=== PATIENT | male | born 1955 ===

== ENCOUNTER 2023-03-12 03:18 | Emergency (ER) | payer OTHER ==
--- OUTSIDE RECORDS SUMMARY | 2023-03-12 03:24 | XMS REPORT | Continuity of Care Document ---
:1955 Author Organization [facility] t Address [address] [facility] [address] [place] [address] Care Team Providers Name Role Phone MARILYN ATKINSON Primary Care Physician Unavailable Anika Grullon Attending Clinician Unavailable Derick Pierce Attending Clinician MARILYN ATKINSON Attending Clinician Unavailable Hadley Lynch Attending Clinician TOBY ARIAS Attending Clinician Unavailable DERICK SÁNCHEZ Attending Clinician Unavailable Joce Padilla Attending Clinician Anika Grullon Admitting Clinician Unavailable MARILYN ATKINSON Admitting Clinician Unavailable HADLEY GRAMAJO Admitting Clinician Unavailable Payers Payer Name Policy Type Policy Number Effective Date Expiration Date Ines hull WELLCARE/WELLCARE [id number] 2022 [employer] 00:00:00 WELLCARE HEALTH 5 [id number] 2022 MEDICARE 00:00:00 AMERIVANTAGE [id number] 2020 00:00:00 Problems Condition Condition Condition Status Onset Resolution Last Treating Co mments Source Name Details Category Date Date Treatment Clinician Date Diarrhea Diarrhea Disease Active Vanessa garcia 11-24 Health 00:00: 00 Chronic Chronic Disease Active Vincent bronchitis bronchitis 8-19 He alth 00:00: 00 Allergic Allergic Disease Active Vanessa garcia rhinitis rhinitis 11-24 Health 00:00: 00 Homelessne Homelessne Disease Active H arris ss ss 11-24 Health 00:00: 00 GERD GERD Disease Active 2013-04 Vincent (gastroeso (gastroeso 2-30 He alth phageal phageal 00:00: reflux reflux 00 disease) disease) Urge Urge Disease Active 2013-04 Vincent incontinen incontinen 2-30 He alth ce ce 00:00: 00 Obesity Obesity Disease Active 2013-04 Vincent (BMI (BMI 2-30 Health 30-39.9) 30-39.9) 00:00: 00 DIARRHEA DIARRHEA Diagnosis Active 2014-03-08 Memoria Active 09-17 10:35:00 l 09/17/2013 12:00: Nestor n 00 [facility] M17.0 - M17.0 - Diagnosis Active 2022-08-29 Memoria BILATERAL BILATERAL 06:51:00 l PRIMARY PRIMARY [place] OSTEOARTHR OSTEOARTHR IT IT Active TAYA Petersonann History of Past Illness Condition Condition Condition Status Onset Resolution Last Treating Co mments Source Name Details Category Date Date Treatment Clinician Date Discharge Discharge Problem 2013-09-21 2013-09-21 [facility] Diagnosis: Diagnosis: 09-18 01:55:59 01:55:59 l Acute Acute 05:00: Dilan gastroente gastroente 00 ritis ritis 09/18/2013 09/21/2013 [facility] Discharge Discharge Problem 2013-09-21 2013-09-21 [facility] Diagnosis: Diagnosis: 09-18 01:55:59 01:55:59 l Watery Watery 05:00: Dilan diarrhea, diarrhea, 00 hypokalemi hypokalemi a, and a, and achlorhydr achlorhydr ia ia syndrome syndrome 09/18/2013 09/21/2013 [facility] Discharge Discharge Problem 2013-09-21 2013-09-21 [facility] Diagnosis: Diagnosis: 09-18 01:55:59 01:55:59 l Acute Acute 05:00: [place] lower lower 00 urinary urinary tract tract infection infection 09/18/2013 4 [facility] Allergies, Adverse Reactions, Alerts Allergy Allergy Status Severity Reaction(s) Onset Inactive Treating Comm ents Source Name Type Date Date Clinician No Known No Known Active Memori a Medicati Medicati l on on Dilan Chris s s Family History Family Member Diagnosis Comments Start Date Stop Date Source Natural father Heart [facility] Natural mother Arthritis [facility] Social History Social Habit Start Date Stop Date Quantity Comments Source Sexual orientation [facility] Gender identity [facility] History of Social 2022-05-04 2022-05-04 [facility] function 00:00:00 00:00:00 Alcohol intake 2020-11-08 2020-11-08 Current [facility] 00:00:00 00:00:00 non-drinker of alcohol (finding) Tobacco use and 2015-11-25 2015-11-25 Smokeless tobacco [facility] exposure 00:00:00 00:00:00 non-user Tobacco Comment 2014-04-06 2014-04-06 occasional cigar [facility] 00:00:00 00:00:00 History of tobacco 2013-12-06 Cigar Smoker [facility] use 00:00:00 Alcohol Comment 2013-10-27 2013-10-27 social [facility]th 00:00:00 00:00:00 Sex [birth year] [facility] alth 00:00:00 00:00:00 Smoking Status Start Date Stop Date Source Unknown if ever smoked [facility] Ex-smoker 2015-11-25 00:00:00 2015-11-25 00:00:00 [facility] Medications Ordered Filled Start Stop Current Ordering Indication Dosage Frequency Signature Comments Components Source Medication Medication Date Date Medication? Clinician (SIG) Name Name sertraline 2020-0 Yes Mood 50mg QD Take 1 Harri s (ZOLOFT) 50 7-16 disorder tablet by Health mg tablet 00:00: mouth 00 daily. lisinopriL 2020-0 Yes Essential 5mg QD Take 1 Kaur (PRINIVIL, 7-16 hypertensio tablet by Health ZESTRIL) 5 00:00: n, benign mouth mg tablet 00 daily. amLODIPine 2020-0 Yes Essential 5mg QD Take 1 Kaur (NORVASC) 5 7-16 hypertensio tablet by Health mg tablet 00:00: n, benign mouth 00 daily. sertraline 2020-0 Yes Mood 50mg QD Take 1 Harri s (ZOLOFT) 50 7-16 disorder tablet by Health mg tablet 00:00: mouth 00 daily. lisinopriL 2020-0 Yes Essential 5mg QD Take 1 Kaur (PRINIVIL, 7-16 hypertensio tablet by Health ZESTRIL) 5 00:00: n, benign mouth mg tablet 00 daily. amLODIPine 2020-0 Yes Essential 5mg QD Take 1 Kaur (NORVASC) 5 7-16 hypertensio tablet by Health mg tablet 00:00: n, benign mouth 00 daily. sertraline 2020-0 Yes Mood 50mg QD Take 1 Harri s (ZOLOFT) 50 7-16 disorder tablet by Health mg tablet 00:00: mouth 00 daily. lisinopriL 2020-0 Yes Essential 5mg QD Take 1 Kaur (PRINIVIL, 7-16 hypertensio tablet by Health ZESTRIL) 5 00:00: n, benign mouth mg tablet 00 daily. amLODIPine 2020-0 Yes Essential 5mg QD Take 1 Kaur (NORVASC) 5 7-16 hypertensio tablet by Health mg tablet 00:00: n, benign mouth 00 daily. atorvastati 2020-0 Yes Hyperlipide 10mg Take 0.5 Kaur n (LIPITOR) 6-16 sherita, tablets by alth 20 mg 00:00: unspecified mouth at tablet 00 hyperlipide bedtime sherita type nightly. albuterol 2020-0 Yes Chronic 2{puff} Inhale 2 Kaur 90 6-16 obstructive Puffs by [facility] mcg/actuati 00:00: pulmonary mouth on inhaler 00 disease, every 4 unspecified hours as COPD type needed for Wheezing or Shortness of Breath. loratadine 2020-0 Yes Allergic 10mg QD Take 1 H arris (CLARITIN) 6-16 rhinitis, tablet by Health 10 mg 00:00: unspecified mouth tablet 00 seasonality daily. , unspecified trigger atorvastati 2020-0 Yes Hyperlipide 10mg Take 0.5 Kaur n (LIPITOR) 6-16 sherita, tablets by alth 20 mg 00:00: unspecified mouth at tablet 00 hyperlipide bedtime sherita type nightly. albuterol 2020-0 Yes Chronic 2{puff} Inhale 2 Kaur 90 6-16 obstructive Puffs by [facility] th mcg/actuati 00:00: pulmonary mouth on inhaler 00 disease, every 4 unspecified hours as COPD type needed for Wheezing or Shortness of Breath. loratadine Yes Allergic 10mg QD Take 1 H arris (CLARITIN) 6-16 rhinitis, tablet by Health 10 mg 00:00: unspecified mouth tablet 00 seasonality daily. , unspecified trigger atorvastati Yes Hyperlipide 10mg Take 0.5 Kaur n (LIPITOR) 6-16 sherita, tablets by alth 20 mg 00:00: unspecified mouth at tablet 00 hyperlipide bedtime sherita type nightly. albuterol Yes Chronic 2{puff} Inhale 2 Kaur 90 6-16 obstructive Puffs by [facility] mcg/actuati 00:00: pulmonary mouth on inhaler 00 disease, every 4 unspecified hours as COPD type needed for Wheezing or Shortness of Breath. loratadine Yes Allergic 10mg QD Take 1 H arris (CLARITIN) 6-16 rhinitis, tablet by [facility] 10 mg 00:00: unspecified mouth tablet 00 seasonality daily. , unspecified trigger miconazole 2015-04 Yes Tinea Q.5D Apply to Garcia [facility]ris (MICOTIN) 2 0-04 affected Heal th % topical 00:00: area 2 cream 00 times daily. amLODIPine 2015-04 Yes Essential 5mg QD Take 1 Kaur (NORVASC) 5 0-04 hypertensio tablet by Health mg tablet 00:00: n, benign mouth 00 daily. miconazole 2015-04 Yes Tinea Q.5D Apply to Garcia rris (MICOTIN) 2 0-04 affected Heal th % topical 00:00: area 2 cream 00 times daily. amLODIPine 2015-04 Yes Essential 5mg QD Take 1 Kaur (NORVASC) 5 0-04 hypertensio tablet by Health mg tablet 00:00: n, benign mouth 00 daily. miconazole 2015-04 Yes Tinea Q.5D Apply to [facility] (MICOTIN) 2 0-04 affected Heal th % topical 00:00: area 2 cream 00 times daily. amLODIPine 2015-04 Yes Essential 5mg QD Take 1 Kaur (NORVASC) 5 0-04 hypertensio tablet by Health mg tablet 00:00: n, benign mouth 00 daily. budesonide- Yes Chronic 2{puff} Q.5D Inhale 2 Kaur formoterol 8-19 bronchitis, Puffs by [facility] (SYMBICORT) 00:00: unspecified mouth 2 160-4.5 00 chronic times mcg/actuati bronchitis daily on inhaler type Rinse mouth after using. mometasone Yes Other 2{spray QD 2 Sprays Kaur (NASONEX) 8-19 allergic } by each [facility] 50 00:00: rhinitis nostril mcg/actuati 00 route on nasal daily. spray budesonide- Yes Chronic 2{puff} Q.5D Inhale 2 Kaur formoterol 8-19 bronchitis, Puffs by Health (SYMBICORT) 00:00: unspecified mouth 2 160-4.5 00 chronic times mcg/actuati bronchitis daily on inhaler type Rinse mouth after using. mometasone Yes Other 2{spray QD 2 Sprays Vincent (NASONEX) 8-19 allergic } by each [facility] 50 00:00: rhinitis nostril mcg/actuati 00 route on nasal daily. spray budesonide- Yes Chronic 2{puff} Q.5D Inhale 2 Kaur formoterol 8-19 bronchitis, Puffs by Health (SYMBICORT) 00:00: unspecified mouth 2 160-4.5 00 chronic times mcg/actuati bronchitis daily on inhaler type Rinse mouth after using. mometasone Yes Other 2{spray QD 2 Sprays Vincent (NASONEX) 8-19 allergic } by each [facility] 50 00:00: rhinitis nostril mcg/actuati 00 route on nasal daily. spray Ondansetron Yes Special Mem oria 4 MG 6-13 Instructio l Disintegrat 06:27: ns: Nestor griffin ing Tablet 00 Dissolve tab under tongue Ciprofloxac Yes 500 mg = 1 Memoria in 500 MG 6-13 tab, PO, l Oral Tablet 06:27: BID, # 10 H ermann [Cipro] 00 tab, 0 Refill(s) Ciprofloxac Yes 500 mg = 1 Memoria in 500 MG 6-13 tab, PO, l Oral Tablet 06:27: BID, # 10 H ermann [Cipro] 00 tab, 0 Refill(s) Ondansetron Yes Special Mem oria 4 MG 6-13 Instructio l Disintegrat 06:27: ns: Nestor n ing Tablet 00 Dissolve tab under tongue Ciprofloxac Yes 500 mg = 1 Memoria in 500 MG 09-18 tab, PO, l Oral Tablet 06:27: BID, # 10 H ermann [Cipro] 00 tab, 0 Refill(s) Ondansetron Yes Special Mem oria 4 MG 09-18 Instructio l Disintegrat 06:27: ns: Nestor griffin ing Tablet 00 Dissolve tab under tongue potassium No 20 mEq, Memor ia chloride 20 09-18 Route: l mEq/100 mL 04:39: IVPB, Nestor n intravenous 00 ONCE, solution Dosing Weight 100, kg, Priority: STAT, Start date: 09/17/13 23:39:00, Stop date: 09/17/13 23:39:00 potassium 2013-0 No 20 mEq, Memor ia chloride 20 09-18 Route: l mEq/100 mL 04:39: IVPB, Nestor n intravenous 00 ONCE, solution Dosing Weight 100, kg, Priority: STAT, Start date: 09/17/13 23:39:00, Stop date: 09/17/13 23:39:00 potassium 2013-0 No 20 mEq, Memor ia chloride 20 09-18 Route: l mEq/100 mL 04:39: IVPB, Nestor n intravenous 00 ONCE, solution Dosing Weight 100, kg, Priority: STAT, Start date: 09/17/13 23:39:00, Stop date: 09/17/13 23:39:00 Potassium 2013-0 No 40 mEq, Memor ia Chloride 20 09-18 Route: PO, l MEQ 04:38: Drug form: [place] Extended 00 ERTAB, Release ONCE, Tablet Dosing Weight 100, kg, Priority: STAT, Start date: 09/17/13 23:38:00, Stop date: 09/17/13 23:38:00 Potassium 2013-0 No 40 mEq, Memor ia Chloride 20 613 Route: PO, l MEQ 04:38: Drug form: Dilan Extended 00 ERTAB, Release ONCE, Tablet Dosing Weight 100, kg, Priority: STAT, Start date: 09/17/13 23:38:00, Stop date: 09/17/13 23:38:00 Potassium 2013-0 No 40 mEq, Memor ia Chloride 20 613 Route: PO, l MEQ 04:38: Drug form: [place] Extended 00 ERTAB, Release ONCE, Tablet Dosing Weight 100, kg, Priority: STAT, Start date: 09/17/13 23:38:00, Stop date: 09/17/13 23:38:00 Saline No Notes: Memoria Flush 0.9% 6-13 (Same as: l 04:04: BD Dilan 00 Posiflush) Sodium No 1,000 mL, Memori a Chloride 6-13 1000 l 0.154 04:04: ml/hr, Dilan MEQ/ML 00 Infuse Injectable Over: 1 Solution hr, Route: IV, 1,000, Drug form: INJ, ONCE, Priority: STAT, Dosing Weight 100 kg, Start date: 09/17/13 23:04:00, Duration: 1 doses or times, Stop date: 09/17/13 23:04:00 Ondansetron No Notes: Jitendra abigail 6-13 (Same as: l 04:04: Zofran) [place] Saline No Notes: Memoria Flush 0.9% 6-13 (Same as: l 04:04: BD [place] 00 Posiflush) Sodium No 1,000 mL, Memori a Chloride 6-13 1000 l 0.154 04:04: ml/hr, [place] MEQ/ML 00 Infuse Injectable Over: 1 Solution hr, Route: IV, 1,000, Drug form: INJ, ONCE, Priority: STAT, Dosing Weight 100 kg, Start date: 09/17/13 23:04:00, Duration: 1 doses or times, Stop date: 09/17/13 23:04:00 Ondansetron No Notes: Jitendra abigail 6-13 (Same as: l 04:04: Zofran) Dilan Ondansetron No Notes: Jitendra abigail 6-13 (Same as: l 04:04: Zofran) [place] Saline No Notes: Memoria Flush 0.9% 6-13 (Same as: l 04:04: BD Dilan 00 Posiflush) Sodium No 1,000 mL, Memori a Chloride 6-13 1000 l 0.154 04:04: ml/hr, Dilan MEQ/ML 00 Infuse Injectable Over: 1 Solution hr, Route: IV, 1,000, Drug form: INJ, ONCE, Priority: STAT, Dosing Weight 100 kg, Start date: 09/17/13 23:04:00, Duration: 1 doses or times, Stop date: 09/17/13 23:04:00 Immunizations Ordered Immunization Filled Immunization Date Status Commen ts Source Name Name Influenza Vaccine 2016-01-10 Completed [facility] 00:00:00 Influenza Vaccine 2014-04-06 Completed [facility] 00:00:00 Tdap Tetanus, 2014-04-06 [facility]:00 acellular pertussis Vaccine PPV 23 Pneumococcal 2014-04-06 Completed [facility] 00:00:00 Influenza Vaccine Unknown Completed [facility] Tdap Tetanus, Unknown [facility], acellular pertussis Vaccine PPV 23 Pneumococcal Unknown Completed [facility] Influenza Vaccine Unknown Completed [facility] Influenza Vaccine Unknown Completed [facility] Tdap Tetanus, Unknown Com[facility], acellular pertussis Vaccine PPV 23 Pneumococcal Unknown Completed [facility] Influenza Vaccine Unknown Completed [facility] Vital Signs Vital Name Observation Time Observation Value Comments Source Diastolic (mm Hg) 2013-09-18 06:49:00 Mem orial [place] Systolic (mm Hg) 2013-09-18 06:49:00 Jitendra rial [place]an Respitory Rate 2013-09-18 06:49:00 Memori al [place] Heart Rate 2013-09-18 05:00:00 Memorial [place] Respitory Rate 2013-09-18 05:00:00 Memori al [place] Systolic (mm Hg) 2013-09-18 05:00:00 Jitendra rial [place] Diastolic (mm Hg) 2013-09-18 05:00:00 Mem orial [place] Weight 2013-09-18 03:24:00 Memorial [facility]an BMI Calculated 2013-09-18 03:24:00 Memori al [place] Temperature Oral (F) 2013-09-18 03:24:00 98.6 F [facility] [place] Respitory Rate 2013-09-18 03:24:00 Memori al [place] Heart Rate 2013-09-18 03:24:00 Memorial Dilan Diastolic (mm Hg) 2013-09-18 03:24:00 Mem orial [place] Systolic (mm Hg) 2013-09-18 03:24:00 Jitendra rial [place] Height 2013-09-18 03:24:00 182.88 cm [facility] Procedures Procedure Date / Time Performed Performing Clinician Sourc e Infectious agent 2019-10-14 00:00:00 [facility] detection by nucleic acid (DNA or Appendectomy [facility] Plan of Care Planned Activity Planned Date Details Comments Source Future Scheduled Test 2023-01-06 IMM Influenza Seasonal [facility] 00:00:00 (>/= 19 yrs) [code = IMM Influenza Seasonal (>/= 19 yrs)] Future Scheduled Test 2022-12-07 IMM Influenza Seasonal [facility] 00:00:00 (>/= 19 yrs) [code = IMM Influenza Seasonal (>/= 19 yrs)] Future Scheduled Test 2022-12-07 IMM Influenza Seasonal [facility] 00:00:00 (>/= 19 yrs) [code = IMM Influenza Seasonal (>/= 19 yrs)] Future Scheduled Test 2019-07-25 Imm Pneumococcal 65+ (2 [facility] 00:00:00 - PCV) [code = Imm Pneumococcal 65+ (2 - PCV)] Future Scheduled Test 2019-07-25 Imm Pneumococcal 65+ ([address] [place] [address] 00:00:00 - PCV) [code = Imm Pneumococcal 65+ (2 - PCV)] Future Scheduled Test 2015-04-06 Imm Pneumococcal 65+ (2 [facility] 00:00:00 - PCV) [code = Imm Pneumococcal 65+ (2 - PCV)] Future Scheduled Test 2014-10-27 Screening for malignant [facility] 00:00:00 neoplasm of colon (procedure) [code = 460809580] Future Scheduled Test 2014-10-27 Screening for malignant [facility] 00:00:00 neoplasm of colon (procedure) [code = 067293028] Future Scheduled Test 2014-10-27 Screening for malignant [facility] 00:00:00 neoplasm of colon (procedure) [code = 117333226] Future Scheduled Test 1956-01-23 COVID-19 Vaccine (#1) [facility] 00:00:00 [code = COVID-19 Vaccine (#1)] Future Scheduled Test 1956-01-23 COVID-19 Vaccine (#1) [facility] 00:00:00 [code = COVID-19 Vaccine (#1)] Future Scheduled Test 1956-01-23 COVID-19 Vaccine (#1) [facility] 00:00:00 [code = COVID-19 Vaccine (#1)] Encounters Start End Encounter Admission Attending Care Care Encounter Source Date/Time Date/Time Type Type Clinicians Facility Department ID 2022-08-[address] [facility] [id number] [place] 08:54:02 [id number] [facility] 2023-01-16 2023-01-16 Outpatient OZ Adler RADI [id number] [facility] 15:37:00 15:37:00 Anika Avalos [facility] [place] 2022-08-09 2022-08-10 Outpt Diag [facility] [id number] Memoria 13:55:00 04:59:00 Services Outpatient 00 l Imaging [place] 2022-08-09 2022-08-10 [facility] [id number] [facility] 13:55:00 04:59:00 Services Outpatient 00 l Imaging Dilan Petersonann 2022-08-09 2022-08-09 Outpatient Stan [facility] [id number] 08:55:00 23:59:00 Derick Long 2022-06-25 2022-06-25 Outpatient ZIA [id number] 00:00:00 00:00:00 Birgit Tripathi 2022-06-04 2022-06-04 Office Andres Gramajo [id number] 08:30:00 09:47:07 Visit Hadley Terrazas [facility].[id number] Central .[id number] 2022-06-04 2022-06-04 Outpatient Jerome GRAMAJO60EPIC [id number] 06:34:12 07:47:07 HADLEY Genao 2021-08-30 2021-08-30 Outpatient JUANA [facility] [id number] [facility] 00:00:00 00:00:00 TOBY 2019-10-14 2019-10-14 Outpatient [facility] [id number] [facility] 10:00:00 10:00:00 [id number] [facility] [id number] 2019-10-14 2019-10-14 Outpatient GONZALO LENCHO [facility] [id number] Access[facility] 00:00:00 00:00:00 DERICK pittreza 2019-10-14 2019-10-14 Outpatient GONZALO [facility] [id number] [facility] 00:00:00 00:00:00 DERICK Garcia [id number] [facility] [id number] 2017-10-07 2017-10-07 Outpatient [facility] [id number] [facility] 12:03:54 12:03:54 2017-10-07 2017-10-07 Outpatient [facility] [id number] [facility] 00:00:00 00:00:00 2017-10-01 2017-10-01 Outpatient [facility] HH [id number] [facility] 15:51:53 15:51:53 2017-09-17 2017-09-17 Outpatient [facility] [id number] [facility] 12:24:15 12:24:15 2017-08-27 2017-08-27 Outpatient HHH [facility] [id number] [facility] 11:00:13 11:00:13 2017-08-08 2017-08-08 Outpatient [facility] [id number] [facility] 09:53:58 09:53:58 2017-07-23 2017-07-23 Outpatient [facility] [id number] [place] 00:00:00 00:00:00 Health 2017-07-22 2017-07-22 Outpatient [facility] [id number] [facility] 15:37:05 15:37:05 2017-07-22 2017-07-22 Outpatient [facility] [id number] [facility] 15:28:03 15:28:03 2017-07-16 2017-07-16 Outpatient [facility] [id number] [facility] 14:16:45 14:16:45 2017-07-15 2017-07-15 Outpatient [facility] HH [id number] [facility] 16:19:25 16:19:25 2017-07-01 2017-07-01 Outpatient [facility] [id number] [facility] 15:50:28 15:50:28 2017-06-24 2017-06-24 Outpatient C [facility] [id number] 16:40:00 16:40:00 [facility] 2016-12-26 2016-12-26 Outpatient C [facility] [id number] 11:18:00 11:18:00 [facility] 2016-05-18 2016-05-18 Emergency E [facility] [id number] 10:51:00 10:51:00 [facility] 2013-09-18 2013-09-18 [facility] [id number] [facility] 03:22:00 06:51:00 Emergency r [place] 00 l [facility] 2013-09-18 2013-09-18 [facility] [id number] [facility] 03:22:00 06:51:00 Emergency r Dilan 00 l [facility] 2013-09-17 2013-09-18 Outpatient Valerie, Joce [id number] 22:22:00 01:51:00 Amrit [id number] 01 Results Test Description Test Time Test Comments Results Result Comments Source - XR CHEST 2 V 2023-01-16 [facility]:27:00 [facility] 1955 Sex: M Name: ROSY GARCIA [facility] : 1955 Age/S: 67 / M [id number] [address] [place] Unit #: [id number] Loc: [place] [address] Phys: Anika Grullon MD Acct: [id number] Dis Date: Status: REG CLI PHONE #: [phone] Exam Date: 01/16/20231557 FAX #: Reason: MUCOPURULENT CHRONIC BRONCHITIS EXAMS: CPT: [id number] XR CHEST 2 V 11563 Fluoro Time: DAP (Gy m2): Air Kerma (mGy): REASON FOR EXAM: Chronic bronchitis. COMPARISON: None. Chest, 2 views, frontal and lateral projection. The lungs are well-inflated and clear. Heart size is mildly enlarged with vascular congestive pattern changes.. No effusion or pneumothorax can be seen. Osseous structures appear to be intact. IMPRESSION: No acute consolidation. Mild cardiac enlargement with vascular congestion may need correlation with fluid status or mild heart failure. No effusion. Location: [facility] at 1627 Reported and signed by: Joce Roberts M.D. CC: Anika Grullon MD PAGE 1 Signed Report Name: [facility] [place] : 1955 Age/S: 67 / M [id number] [address] [place] Unit #: [id number] Loc: [place] [address] Phys: Anika Grullon MD Acct: [id number] Dis Date: Status: REG CLI PHONE #: [phone] Exam Date: 01/16/20231557 FAX #: Reason: MUCOPURULENT CHRONIC BRONCHITIS EXAMS: CPT: [id number] XR CHEST 2 V 45051 Fluoro Time: DAP (Gy m2): Air Kerma (mGy): (Continued) Technologist: Lily Tran Trnscb Date/Time: 01/16/2023 (1627) [email or web address] Orig Print D/T: S: 01/16/2023 (9465) PAGE 2 Signed Report RADRPT 2022-08-09 16:11:08 Test Item Value Reference Range Interpretation Comme nts RADRPT (test code = RADRPT) EXAM: XR LUMBAR SPINE 4 VIEWSDATE: 08/09/2022INDICATION: Other intervertebral disc degeneration, lumbar regionCOMPARISON: None.TECHNIQUE: AP, lateral, and lateral flexion-extension radiographs of the lumbar spine.FINDINGS: 5 lumbar type, non-rib bearing vertebral bodies are present. Mild vertebral body height loss of L5. Mild disc height loss and small vertebral body osteophytes throughout the lumbar spine. Mild dextrocurvature of the lumbar spine. Moderate lower lumbar facet arthropathy is present, along with small vertebral body osteophytes. No subluxation on flexion-extension.Surgical clips overlie the gallbladder fossa. Soft tissues are otherwise unremarkable.IMPRESSION: 1. Mild degenerative disc disease throughout the lumbar spine.2. Moderate lower lumbar facet arthrosis. [id number] 16:11:08 Test Item Value Reference Range Interpretation Comments RADRPT (test code EXAM: XR LUMBAR SPINE 4 = RADRPT) VIEWSDATE: 08/09/2022INDICATION: Other intervertebral disc degeneration, lumbar regionCOMPARISON: None.TECHNIQUE: AP, lateral, and lateral flexion-extension radiographs of the lumbar spine.FINDINGS: 5 lumbar type, non-rib bearing vertebral bodies are present. Mild vertebral body height loss of L5. Mild disc height loss and small vertebral body osteophytes throughout the lumbar spine. Mild dextrocurvature of the lumbar spine. Moderate lower lumbar facet arthropathy is present, along with small vertebral body osteophytes. No subluxation on flexion-extension.Surgical clips overlie the gallbladder fossa. Soft tissues are otherwise unremarkable.IMPRESSION: 1. Mild degenerative disc disease throughout the lumbar spine.2. Moderate lower lumbar facet arthrosis. [id number] 16:11:08 Test Item Value Reference Range Interpretation Comments RADRPT (test code EXAM: XR LUMBAR SPINE 4 = RADRPT) VIEWSDATE: 08/09/2022INDICATION: Other intervertebral disc degeneration, lumbar regionCOMPARISON: None.TECHNIQUE: AP, lateral, and lateral flexion-extension radiographs of the lumbar spine.FINDINGS: 5 lumbar type, non-rib bearing vertebral bodies are present. Mild vertebral body height loss of L5. Mild disc height loss and small vertebral body osteophytes throughout the lumbar spine. Mild dextrocurvature of the lumbar spine. Moderate lower lumbar facet arthropathy is present, along with small vertebral body osteophytes. No subluxation on flexion-extension.Surgical clips overlie the gallbladder fossa. Soft tissues are otherwise unremarkable.IMPRESSION: 1. Mild degenerative disc disease throughout the lumbar spine.2. Moderate lower lumbar facet arthrosis. [id number] 16:08:20 Test Item Value Reference Range Interpretation Comments RADRPT (test code EXAM: XR BILATERAL KNEE 3 = RADRPT) VIEWSDATE: 08/09/2022INDICATION: Bilateral primary osteoarthritis of kneeCOMPARISON: None.TECHNIQUE: Standing AP, sunrise and lateral radiographs of both kneesFINDINGS: Right knee: No acute fracture or malalignment is identified. Tricompartmental osteophyte formation. Joint space narrowing in the lateral and patellofemoral compartments.No knee joint effusion is present. Vascular calcifications are present.Left knee: No acute fracture or malalignment is identified. Tricompartmental osteophyte formation. Joint space narrowing in the lateral and patellofemoral compartments.No knee joint effusion is present. Vascular calcifications are present.IMPRESSION: Moderate to severe bilateral knee osteoarthrosis, greatest in the lateral compartments. [id number] 16:08:20 Test Item Value Reference Range Interpretation Comments RADRPT (test code EXAM: XR BILATERAL KNEE 3 = RADRPT) VIEWSDATE: 08/09/2022INDICATION: Bilateral primary osteoarthritis of kneeCOMPARISON: None.TECHNIQUE: Standing AP, sunrise and lateral radiographs of both kneesFINDINGS: Right knee: No acute fracture or malalignment is identified. Tricompartmental osteophyte formation. Joint space narrowing in the lateral and patellofemoral compartments.No knee joint effusion is present. Vascular calcifications are present.Left knee: No acute fracture or malalignment is identified. Tricompartmental osteophyte formation. Joint space narrowing in the lateral and patellofemoral compartments.No knee joint effusion is present. Vascular calcifications are present.IMPRESSION: Moderate to severe bilateral knee osteoarthrosis, greatest in the lateral compartments. [id number] 16:08:20 Test Item Value Reference Range Interpretation Comments RADRPT (test code EXAM: XR BILATERAL KNEE 3 = RADRPT) VIEWSDATE: 08/09/2022INDICATION: Bilateral primary osteoarthritis of kneeCOMPARISON: None.TECHNIQUE: Standing AP, sunrise and lateral radiographs of both kneesFINDINGS: Right knee: No acute fracture or malalignment is identified. Tricompartmental osteophyte formation. Joint space narrowing in the lateral and patellofemoral compartments.No knee joint effusion is present. Vascular calcifications are present.Left knee: No acute fracture or malalignment is identified. Tricompartmental osteophyte formation. Joint space narrowing in the lateral and patellofemoral compartments.No knee joint effusion is present. Vascular calcifications are present.IMPRESSION: Moderate to severe bilateral knee osteoarthrosis, greatest in the lateral compartments. [facility] Metabolic Panel ([id number] 17:09:00 Test Item Value Reference Range Interpretation Comments Glucose (test code = 98 mg/dL 70-99 [employer]: [id number]) Meek aTlley Eskue, MDFacility Phon e: BUN (test code = 11 mg/dL 8-27 Pediatric Immunologist razia: [id number]) Meek Talley Eskue, MDFacility Phon e: Creatinine (test code 1.27 mg/dL 0.76-1.27 [facility] = [id number]) Meek Talley Eskue, MDFacility Phon e: eGFR (test code = 62 mL/min/1.73 >59 [employer]: [id number]) Meek Talley Eskue, MDFacility Phon e: BUN/Creatinine Ratio 9 10-24 [employer]: (test code = 176936) Meek Talley Eskue, MDFacility Phon e: Sodium (test code = 138 mmol/L 134-144 [employer]: [id number]) Meek Talley Eskue, MDFacility Phon e: Potassium (test code 4.1 mmol/L 3.5-5.2 [employer]: = 200486) Meek Talley Eskue, MDFacility Phon e: Chloride (test code = 108 mmol/L 96-106 Medica l Director: [id number]) Meek Talley Eskue, MDFacility Phon e: Carbon Dioxide, Total 18 mmol/L 20-29 Medica l Director: (test code = 120928) Meek Talley Eskue, MDFacility Phon e: Calcium (test code = 8.9 mg/dL 8.6-10.2 [employer]itter: [id number]) Meek Lopez MDFacility Phon e: Protein, Total (test 7.1 g/dL 6.0-8.5 [employer]itter: code = 333828) Meek Lopze, MDFacility Phon e: Albumin (test code = 4.3 g/dL 3.8-4.8 [employer]: [id number]) Meek Lopez, MDFacility Phon e: Globulin, Total (test 2.8 g/dL 1.5-4.5 [facility] code = 063876) Meek Lopez, MDFacility Phon e: A/G Ratio (test code 1.5 1.2-2.2 [employer]itter: = 436258) Meek Lopez, MDFacility Phon e: Bilirubin, Total 0.8 mg/dL 0.0-1.2 Pediatric Immunologist razia: (test code = 862539) Meek Lopez, MDFacility Phon e: Alkaline Phosphatase 64 IU/L 44-121 [employer]der And [employer]itter: (test code = 019354) Meek Lopez, MDFacility Phon e: AST (SGOT) (test code 15 IU/L 0-40 [facility] = [id number]) Meek Lopez, MDFacility Phon e: ALT (SGPT) (test code 7 IU/L 0-44 [facility] = [id number]) Meek Lopez, MDFacility Phon e: Patient FastingLipid [id number] 17:09:00 Test Item Value Reference Range Interpretation Comments Cholesterol, Total (test 189 mg/dL 100-199 Med [facility] Director: code = 225446) Meek Lopez, MDFacility Phon e: Triglycerides (test code 68 mg/dL 0-149 Med ical Director: = [id number]) Jes Jackson Phon e: HDL Cholesterol (test 40 mg/dL >39 Medica l Director: code = 945824) Liseth Jacksoncility Phon e: VLDL Cholesterol Rod 13 mg/dL 5-40 [employer]itter: (test code = 377211) Liseth Jacksoncilannalise Phon e: LDL Chol Calc ([facility]) 136 mg/dL 0-99 Welder And Fitter: (test code = 059392) Yvette Jacksonity Phon e: Patient FastingHemoglobin [id number] 17:09:00 Test Item Value Reference Range Interpretation Comments Hemoglobin A1c (test 5.7 % 4.8-5.6 . Pred iabetes: 5.7 - code = 418218) 6.4 Diabetes: >6.4 Glycemic contro l for adults with joselyn betes: <7.0Medical Dir razia: Obed Jackson [facility] Phone: Patient FastingRPR, Rfx Qn RPR/Confirm [id number] 17:09:00 Test Item Value Reference Range Interpretation Comments RPR (test code = Non Reactive Non Reactive Pediatric Immunologist razia: Meek [id number]) Isael Olvera lity Phone: Patient FastingHIV Ab/p24 Ag with [id number] 17:09:00 Test Item Value Reference Range Interpretation Comments HIV Ab/p24 Ag See comment Non Reactive HIV-1/HIV-2 an tibodies Screen (test code = and HIV- 1 p24 antigen [id number]) were NOT detect ed.There is no laborator y evidence of HIV infection.Medic al Director: Jes Jackson Phon e: Patient FastingHCV [id number] 17:09:00 Test Item Value Reference Range Interpretation Comments Hep C Virus Ab See comment Non Reactive HCV antibody alone does not (test code = differentiate b etween 577423) previouslyresol camron infection and a ctive infection. Equi vocal and ReactiveHCV ant ibody results should be followed up with an HCV RNA testto support the joselyn gnosis of active HCV infection.Medic al Director: [facility] Phone: Patient FastingPanel Description: SARS-CoV-2 (COVID-19) RNA [Presence] in Unspecified specimen by DONOVAN with probe [id number] 09:18:00 Test Item Value Reference Range Interpretation Comments SARS-CoV-2, Not Detected Not Detected Testing was per formed using DONOVAN (test code the Aptima SA RS-CoV-2 = 14419-9) assay.This test was developed and i ts performance silvino racteristics determinedby [employer]. T his test has not been FDA cl eared orapproved. Thi s test has been authorized by FDA under an Emerge ncy UseAuthorizatio n (EUA). This test is on ly authorized for the duration oftime the decl aration that circumstances e xist justifying akiko uthorization of the emergenc y use of in vitro diagnosti c tests fordetection of SARS-CoV-2 virus and/or di agnosis of COVID-19 infect ionunder section 564(b)( 1) of the Act, 21 U.S.C. 360bbb-3(b)(1), unlessthe authorization i s terminated or revoked soon er.When diagnostic test ing is negative, the p ossibility of a falsenegat rachell result should be consi dered in the context of a patient'srecent exposures and the presenc e of clinical signs and symptomsconsist ent with COVID-19. An in dividual without symptom s of COVID-19and who is not shedding SARS-C oV-2 virus would expect to have anegative (not detected) result in this assay.
< br/>Performe d by:
[facility] will Bey ()

[facility] Spine Thoracic 2 [id number] 11:19:37Patient: ROSY GARCIA Date/Time09/23/2017 11:04 CDTReason for ExampainReportEXAM: XR THORACIC SPINE 2 VIEWSINDICATION: PAINCOMPARISON: None availableTECHNIQUE: AP and lateral radiographs of the thoracic spineDISCUSSION:The vertebral bodies are normal in height, alignment and density. The facet joints and spinous processes are normal alignment. The intervertebral disc spaces are normal. No osseous lesions are identified. No soft tissue abnormality is identified.IMPRESSION:No acute abnormality of the thoracic spine.LOCATION: R 16 Final Dictated by: MD Sarabia Melanie CDictated DT/TM: 09/23/2017 11:19 amSigned by: MD Sarabia Melanie CSigned (Electronic Signature): 09/23/2017 11:19 amXR Spine Lumbosacral 2 or 3 [id number] 11:19:14Patient: ROSY GARCIA Date/Time09/23/2017 11:04 CDTReason for ExampainReportEXAM: XR LUMBAR SPINE 2 VIEWSINDICATION: PAINCOMPARISON: None availableTECHNIQUE: AP and lateral radiographs of the lumbar spineFINDINGS:5 lumbar type, non-rib bearing lumbar vertebral bodies. The vertebral bodies are normal in height, alignment and density. The facet joints and spinous processes are normal in alignment. There is diffuse facet joint arthropathy. There is loss of the intervertebral discheight throughout the lumbar spine. Sacroiliac joints are normal. No soft tissue abnormality is identified.IMPRESSION:Diffuse discogenic disease and facet joint arthropathy.LOCATION: R16 Final *Dictated by: MD Sarabia Melanie CDictated DT/TM: 09/23/2017 11:18 amSigned by: MD Sarabia Melanie CSigned (Electronic Signature): 09/23/2017 11:19 amXR SPINE CERVICAL [id number] 17:43:55CLINICAL INFORMATION: Spine pain neck and mid back.Dictation location: R 16Comparison: No priors.Technique: Frontal and lateral views of the dorsal and cervical spine.FINDINGS: There is straightening of the usual cervical lordosis. Thereis mild chronic anterior wedging of C4 and C5. C5-6 and C6-7 interspacesshow moderate narrowing with marginal osteophytes. There is preservationof the thoracic vertebral body heights with mild levo convexity. Noacute fracture or destructive bone lesion identified.IMPRESSION:1. Cervical dorsal spondylosis.2. No acute finding identified.XR SPINE THORACIC 3V 2017-06-24 17:43:55CLINICAL INFORMATION: Spine pain neck and mid back.Dictation location: R 16Comparison: No priors.Technique: Frontal and lateral views of the dorsal and cervical spine.FINDINGS: There is straightening of the usual cervical lordosis. Thereis mild chronic anterior wedging of C4 and C5. C5-6 and C6-7 interspacesshow moderate narrowing with marginal osteophytes. There is preservationof the thoracic vertebral body heights with mild levo convexity. Noacute fracture or destructive bone lesion identified.IMPRESSION:1. Cervical dorsal spondylosis.2. No acute finding identified.XR KNEE 2V.-[id number] 12:17:27EXAM: XR KNEE 2 VIEWS, LEFTINDICATION: Pain COMPARISON: None availableTECHNIQUE: AP and lateral views of the left knee.FINDINGS: No acute fracture or dislocation is identified. No osseous lesions.Thereis joint space narrowing with subchondral sclerosis andtricompartmental osteophytosis. No joint effusion. No soft tissueabnormality is identified.IMPRESSION: Mild DJD of the left knee.LOCATION: R16XR KNEE 2V.-[id number] 12:12:26EXAM: XR KNEE 2 VIEWS, RIGHTINDICATION: PainCOMPARISON: None availableTECHNIQUE: AP and lateral views of the right knee.FINDINGS: No acute fracture or dislocation is identified. No osseous lesions.There is joint space narrowing with subchondral sclerosis and smalltricompartmental osteophytes. No jointeffusion. No soft tissueabnormality is identified.IMPRESSION: Mild DJD of the right kneeLOCATION: E36WZNHI AND [id number] 04:26:12 Test Item Value Reference Range Interpretation Comments UA Sq Epi (test code = UA Sq Occasional /LPF Epi) [facility] [id number] 04:26:12 Test Item Value Reference Range Interpretation Comments UA Urobilinogen (test code = UA 4.0 0.1-1.0 Urobilinogen) [facility] AND [id number] 04:26:12 Test Item Value Reference Range Interpretation Comments UA Leuk Est (test Negative (09/17/13 11:26 code = UA Leuk Est) PM) [facility] AND [id number] 04:26:12 Test Item Value Reference Range Interpretation Comments UA Nitrite (test code Positive *ABN*(09/17/13 = UA Nitrite) 11:26 PM) [facility] AND [id number] 04:26:12 Test Item Value Reference Range Interpretation Comments UA Amorph Geovanna (test code = Occasional /HPF UA Amorph Geovanna) [facility] AND [id number] 04:26:12 Test Item Value Reference Range Interpretation Comments UA RBC (test code = UA RBC) 0-2 /HPF <=2 [facility] AND [id number] 04:26:12 Test Item Value Reference Range Interpretation Comments UA WBC (test code = UA WBC) 3-5 /HPF [facility] AND [id number] 04:26:12 Test Item Value Reference Range Interpretation Comments UA Mucus (test code = UA Mucus) Few /LPF [facility] AND [id number] 04:26:12 Test Item Value Reference Range Interpretation Comments UA Bacteria (test code = UA Few /HPF Bacteria) [facility] AND [id number] 04:26:12 Test Item Value Reference Range Interpretation Comments UA Bili (test code = Moderate 4*ABN*(09/17/13 UA Bili) 11:26 PM) [facility] AND [id number] 04:26:12 Test Item Value Reference Range Interpretation Comments UA Blood (test code = Moderate *ABN*(09/17/13 UA Blood) 11:26 PM) [facility] AND [id number] 04:26:12 Test Item Value Reference Range Interpretation Comments UA Spec Grav (test >=1.030 *ABN*(09/17/13 code = UA Spec Grav) 11:26 PM) [facility] AND [id number] 04:26:12 Test Item Value Reference Range Interpretation Comments UA pH (test code = UA pH) 6.0 1 5.0-8.0 [facility] AND [id number] 04:26:12 Test Item Value Reference Range Interpretation Comments UA Glucose (test code = UA Glucose) 100 mg/dL [facility] AND [id number] 04:26:12 Test Item Value Reference Range Interpretation Comments UA Ketones (test code = Trace *ABN*(09/17/13 UA Ketones) 11:26 PM) [facility] AND [id number] 04:26:12 Test Item Value Reference Range Interpretation Comments UA Protein (test code = UA >=300 mg/dL Protein) [facility] AND [id number] 04:26:12 Test Item Value Reference Range Interpretation Comments UA Color (test code = Delton *ABN*(09/17/13 UA Color) 11:26 PM) [facility] AND [id number] 04:26:12 Test Item Value Reference Range Interpretation Comments UA Turbidity (test code Slight Cloudy = UA Turbidity) (09/17/13 11:26 PM) [facility] AND [id number] 04:26:12 Test Item Value Reference Range Interpretation Comments UA Sq Epi (test code = UA Sq Occasional /LPF Epi) [facility] AND [id number] 04:26:12 Test Item Value Reference Range Interpretation Comments UA Urobilinogen (test code = UA 4.0 0.1-1.0 Urobilinogen) [facility] AND [id number] 04:26:12 Test Item Value Reference Range Interpretation Comments UA Leuk Est (test Negative (09/17/13 11:26 code = UA Leuk Est) PM) [facility] AND [id number] 04:26:12 Test Item Value Reference Range Interpretation Comments UA Nitrite (test code Positive *ABN*(09/17/13 = UA Nitrite) 11:26 PM) [facility] AND [id number] 04:26:12 Test Item Value Reference Range Interpretation Comments UA Amorph Geovanna (test code = Occasional /HPF UA Amorph Geovanna) [facility] AND [id number] 04:26:12 Test Item Value Reference Range Interpretation Comments UA RBC (test code = 0-2 /HPF See_Comment [Automa ayala message] The UA RBC) system which ge nerated this result tra nsmitted reference range : <=2. The reference range was not used to interpr et this result as elizabeth l/abnormal. [facility] AND [id number] 04:26:12 Test Item Value Reference Range Interpretation Comments UA WBC (test code = UA WBC) 3-5 /HPF [facility] AND [id number] 04:26:12 Test Item Value Reference Range Interpretation Comments UA Mucus (test code = UA Mucus) Few /LPF [facility] AND [id number] 04:26:12 Test Item Value Reference Range Interpretation Comments UA Bacteria (test code = UA Few /HPF Bacteria) [facility] AND [id number] 04:26:12 Test Item Value Reference Range Interpretation Comments UA Bili (test code = Moderate 4*ABN*(09/17/13 UA Bili) 11:26 PM) [facility] AND [id number] 04:26:12 Test Item Value Reference Range Interpretation Comments UA Blood (test code = Moderate *ABN*(09/17/13 UA Blood) 11:26 PM) [facility] AND [id number] 04:26:12 Test Item Value Reference Range Interpretation Comments UA Spec Grav (test >=1.030 *ABN*(09/17/13 code = UA Spec Grav) 11:26 PM) [facility] AND [id number] 04:26:12 Test Item Value Reference Range Interpretation Comments UA pH (test code = UA pH) 6.0 1 5.0-8.0 [facility] AND [id number] 04:26:12 Test Item Value Reference Range Interpretation Comments UA Glucose (test code = UA Glucose) 100 mg/dL [facility] AND [id number] 04:26:12 Test Item Value Reference Range Interpretation Comments UA Ketones (test code = Trace *ABN*(09/17/13 UA Ketones) 11:26 PM) [facility] AND [id number] 04:26:12 Test Item Value Reference Range Interpretation Comments UA Protein (test code = UA >=300 mg/dL Protein) [facility] AND [id number] 04:26:12 Test Item Value Reference Range Interpretation Comments UA Color (test code = Delton *ABN*(09/17/13 UA Color) 11:26 PM) [facility] AND [id number] 04:26:12 Test Item Value Reference Range Interpretation Comments UA Turbidity (test code Slight Cloudy = UA Turbidity) (09/17/13 11:26 PM) [facility] AND [id number] 04:26:12 Test Item Value Reference Range Interpretation Comments UA Sq Epi (test code = UA Sq Occasional /LPF Epi) [facility] AND [id number] 04:26:12 Test Item Value Reference Range Interpretation Comments UA Urobilinogen (test code = UA 4.0 0.1-1.0 Urobilinogen) [facility] AND [id number] 04:26:12 Test Item Value Reference Range Interpretation Comments UA Leuk Est (test Negative (09/17/13 11:26 code = UA Leuk Est) PM) [facility] AND [id number] 04:26:12 Test Item Value Reference Range Interpretation Comments UA Nitrite (test code Positive *ABN*(09/17/13 = UA Nitrite) 11:26 PM) [facility] AND [id number] 04:26:12 Test Item Value Reference Range Interpretation Comments UA Amorph Geovanna (test code = Occasional /HPF UA Amorph Geovanna) [facility] AND [id number] 04:26:12 Test Item Value Reference Range Interpretation Comments UA RBC (test code = UA RBC) 0-2 /HPF <=2 [facility] AND [id number] 04:26:12 Test Item Value Reference Range Interpretation Comments UA WBC (test code = UA WBC) 3-5 /HPF [facility] AND [id number] 04:26:12 Test Item Value Reference Range Interpretation Comments UA Mucus (test code = UA Mucus) Few /LPF [facility] AND [id number] 04:26:12 Test Item Value Reference Range Interpretation Comments UA Bacteria (test code = UA Few /HPF Bacteria) [facility] AND [id number] 04:26:12 Test Item Value Reference Range Interpretation Comments UA Bili (test code = Moderate 4*ABN*(09/17/13 UA Bili) 11:26 PM) [facility] AND [id number] 04:26:12 Test Item Value Reference Range Interpretation Comments UA Blood (test code = Moderate *ABN*(09/17/13 UA Blood) 11:26 PM) [facility] AND [id number] 04:26:12 Test Item Value Reference Range Interpretation Comments UA Spec Grav (test >=1.030 *ABN*(09/17/13 code = UA Spec Grav) 11:26 PM) [facility] AND [id number] 04:26:12 Test Item Value Reference Range Interpretation Comments UA pH (test code = UA pH) 6.0 1 5.0-8.0 [facility] AND [id number] 04:26:12 Test Item Value Reference Range Interpretation Comments UA Glucose (test code = UA Glucose) 100 mg/dL [facility] AND [id number] 04:26:12 Test Item Value Reference Range Interpretation Comments UA Ketones (test code = Trace *ABN*(09/17/13 UA Ketones) 11:26 PM) [facility] AND [id number] 04:26:12 Test Item Value Reference Range Interpretation Comments UA Protein (test code = UA >=300 mg/dL Protein) [facility] AND [id number] 04:26:12 Test Item Value Reference Range Interpretation Comments UA Color (test code = Delton *ABN*(09/17/13 UA Color) 11:26 PM) [facility] AND [id number] 04:26:12 Test Item Value Reference Range Interpretation Comments UA Turbidity (test code Slight Cloudy = UA Turbidity) (09/17/13 11:26 PM) [facility] AND [id number] 04:20:00 Test Item Value Reference Range Interpretation Comments Occult Bld Stl (test Negative (09/17/13 11:20 code = Occult Bld Stl) PM) [facility] AND [id number] 04:20:00 Test Item Value Reference Range Interpretation Comments Occult Bld Stl (test Negative (09/17/13 11:20 code = Occult Bld Stl) PM) [facility] AND [id number] 04:20:00 Test Item Value Reference Range Interpretation Comments Occult Bld Stl (test Negative (09/17/13 11:20 code = Occult Bld Stl) PM) [facility]2014-06-13 03:45:00 Test Item Value Reference Range Interpretation Comments Lipase Lvl (test code = Lipase Lvl) 120 73-393 [facility]2014-06-13 03:45:00 Test Item Value Reference Range Interpretation Comments eGFR (test code = eGFR) 65 [place] [id number] 03:45:00 Test Item Value Reference Range Interpretation Comments B/C Ratio (test code = B/C Ratio) 9 6-25 [place] [id number] 03:45:00 Test Item Value Reference Range Interpretation Comments AGAP (test code = AGAP) 9.8 10.0-20.0 [facility] 03:45:00 Test Item Value Reference Range Interpretation Comments A/G Ratio (test code = A/G Ratio) 0.8 0.7-1.6 [facility]2014-06-13 03:45:00 Test Item Value Reference Range Interpretation Comments Globulin (test code = Globulin) 5.0 2.0-4.0 [facility]2014-06-13 03:45:00 Test Item Value Reference Range Interpretation Comments Calcium Lvl (test code = Calcium Lvl) 9.1 8.5-10.5 [facility]2014-06-13 03:45:00 Test Item Value Reference Range Interpretation Comments CO2 (test code = CO2) 27 24-32 [facility]2014-06-13 03:45:00 Test Item Value Reference Range Interpretation Comments Total Protein (test code = Total 8.8 6.4-8.4 Protein) [facility]2014-06-13 03:45:00 Test Item Value Reference Range Interpretation Comments Bili Total (test code = Bili Total) 2.1 0.2-1.3 [facility]2014-06-13 03:45:00 Test Item Value Reference Range Interpretation Comments Creatinine Lvl (test code = Creatinine 1.4 0.5-1.4 Lvl) [facility]2014-06-13 03:45:00 Test Item Value Reference Range Interpretation Comments Glucose Lvl (test code = Glucose Lvl) 101 70-99 [place] 714214-06-13 03:45:00 Test Item Value Reference Range Interpretation Comments BUN (test code = BUN) 12 7-22 [facility]2014-06-13 03:45:00 Test Item Value Reference Range Interpretation Comments Sodium Lvl (test code = Sodium Lvl) 139 135-145 [facility]2014-06-13 03:45:00 Test Item Value Reference Range Interpretation Comments Chloride Lvl (test code = Chloride Lvl) 105 95-109 [facility]2014-06-13 03:45:00 Test Item Value Reference Range Interpretation Comments Potassium Lvl (test code = Potassium 2.8 3.5-5.1 Lvl) [facility]2014-06-13 03:45:00 Test Item Value Reference Range Interpretation Comments AST (test code = AST) 95 <=37 [place] 714214-06-13 03:45:00 Test Item Value Reference Range Interpretation Comments ALT (test code = ALT) 51 <=65 [place] 714214-06-13 03:45:00 Test Item Value Reference Range Interpretation Comments Albumin Lvl (test code = Albumin Lvl) 3.8 3.5-5.0 [facility]2014-06-13 03:45:00 Test Item Value Reference Range Interpretation Comments Alk Phos (test code = Alk Phos) 69 39-136 [facility] HospitalGjuclkrZGBDAGPJMM8560-73-16 03:45:00 Test Item Value Reference Range Interpretation Comments MPV (test code = MPV) 10.4 7.4-10.4 [facility] HospitalBghnnraVCHEBRPNTJ6370-47-23 03:45:00 Test Item Value Reference Range Interpretation Comments Platelet (test code = Platelet) 177 133-450 [facility] HospitalRjswkwwOOMZAJAYOT9257-47-53 03:45:00 Test Item Value Reference Range Interpretation Comments Hgb (test code = Hgb) 14.1 14.0-18.0 [facility] HospitalBpqslbtCNTEVORXCM2926-46-47 03:45:00 Test Item Value Reference Range Interpretation Comments WBC (test code = WBC) 8.5 3.7-10.4 [place] 913864-06-13 03:45:00 Test Item Value Reference Range Interpretation Comments RBC (test code = RBC) 4.43 4.70-6.10 [facility] HospitalAzxkivtFXIMLXKYZF4135-52-13 03:45:00 Test Item Value Reference Range Interpretation Comments Hct (test code = Hct) 41.5 42.0-54.0 [facility] HospitalSdnbcxsLOGQQYRDPF7314-32-10 03:45:00 Test Item Value Reference Range Interpretation Comments MCV (test code = MCV) 93.6 80.0-94.0 [facility] HospitalMxffdabGRIYHASAAS9420-98-36 03:45:00 Test Item Value Reference Range Interpretation Comments RDW (test code = RDW) 13.2 11.5-14.5 [facility] HospitalRudqonxHTYIBCYZMW8542-60-21 03:45:00 Test Item Value Reference Range Interpretation Comments MCHC (test code = MCHC) 34.0 32.0-36.0 [facility] HospitalLctokaeSLKIXRQWQU4226-84-60 03:45:00 Test Item Value Reference Range Interpretation Comments MCH (test code = MCH) 31.9 pg 27.0-31.0 [facility] HospitalYohhvxtQWIQRKXMHO2553-13-16 03:45:00 Test Item Value Reference Range Interpretation Comments RBC Morph (test code = Normal (09/17/13 10:45 RBC Morph) PM) [facility] HospitalNvchvarHIAFJHLDYR3326-82-89 03:45:00 Test Item Value Reference Range Interpretation Comments Large Plt (test code = Slight *ABN*(09/17/13 Large Plt) 10:45 PM) [facility] HospitalIxjlnlkQBNCEONDPT3478-61-90 03:45:00 Test Item Value Reference Range Interpretation Comments Eosinophils # (test code = Eosinophils 0.3 <=0.5 #) [facility] HospitalZynsvdtNRZBPUIUCG1124-50-55 03:45:00 Test Item Value Reference Range Interpretation Comments Basophils # (test code = Basophils #) 0.[address] [facility] HospitalVjsxkfjDQCBFJLOHE6766-34-73 03:45:00 Test Item Value Reference Range Interpretation Comments Eosinophils (test code = Eosinophils) 3.[address] [facility] HospitalVmlaaqgMGSYZVVSAG7723-32-45 03:45:00 Test Item Value Reference Range Interpretation Comments Monocytes (test code = Monocytes) 13.4 2.0-12.0 [facility] HospitalKmaafqcEKZRAIJTLF5925-52-51 03:45:00 Test Item Value Reference Range Interpretation Comments Basophils (test code = Basophils) 2.[address] [facility] HospitalCocvdvwNUBURIYPIQ7835-87-10 03:45:00 Test Item Value Reference Range Interpretation Comments Lymphocytes (test code = Lymphocytes) 28.3 20.0-40.0 [facility] HospitalSbnuxowAOIJVOAPRH9860-76-27 03:45:00 Test Item Value Reference Range Interpretation Comments Segs (test code = Segs) 52.2 45.0-75.0 [facility] HospitalWlbwygzDZIOBVFFJK1348-47-06 03:45:00 Test Item Value Reference Range Interpretation Comments Monocytes # (test code = Monocytes #) 1.[address] [facility] HospitalXyixdbwNKJUHSQLJN1059-45-45 03:45:00 Test Item Value Reference Range Interpretation Comments Segs-Bands # (test code = Segs-Bands #) 4.4 1.5-8.1 [facility] HospitalVuukuxcWZTGRTNSMB7085-56-91 03:45:00 Test Item Value Reference Range Interpretation Comments Lymphocytes # (test code = Lymphocytes 2.4 1.0-5.5 #) [facility] 03:45:00 Test Item Value Reference Range Interpretation Comments Lipase Lvl (test code = Lipase Lvl) 120 73-393 [facility]2014-06-13 03:45:00 Test Item Value Reference Range Interpretation Comments eGFR (test code = eGFR) 65 [facility]2014-06-13 03:45:00 Test Item Value Reference Range Interpretation Comments B/C Ratio (test code = B/C Ratio) 9 6-25 [facility]2014-06-13 03:45:00 Test Item Value Reference Range Interpretation Comments AGAP (test code = AGAP) 9.8 10.0-20.0 [facility]2014-06-13 03:45:00 Test Item Value Reference Range Interpretation Comments A/G Ratio (test code = A/G Ratio) 0.8 0.7-1.6 [facility]2014-06-13 03:45:00 Test Item Value Reference Range Interpretation Comments Globulin (test code = Globulin) 5.0 2.0-4.0 [facility]2014-06-13 03:45:00 Test Item Value Reference Range Interpretation Comments Calcium Lvl (test code = Calcium Lvl) 9.1 8.5-10.5 [facility]2014-06-13 03:45:00 Test Item Value Reference Range Interpretation Comments CO2 (test code = CO2) 27 24-32 [place] 714214-06-13 03:45:00 Test Item Value Reference Range Interpretation Comments Total Protein (test code = Total 8.8 6.4-8.4 Protein) [place] 714214-06-13 03:45:00 Test Item Value Reference Range Interpretation Comments Bili Total (test code = Bili Total) 2.1 0.2-1.3 [place] 714214-06-13 03:45:00 Test Item Value Reference Range Interpretation Comments Creatinine Lvl (test code = Creatinine 1.4 0.5-1.4 Lvl) [place] 714214-06-13 03:45:00 Test Item Value Reference Range Interpretation Comments Glucose Lvl (test code = Glucose Lvl) 101 70-99 [place] 714214-06-13 03:45:00 Test Item Value Reference Range Interpretation Comments BUN (test code = BUN) 12 7-22 [place] 714214-06-13 03:45:00 Test Item Value Reference Range Interpretation Comments Sodium Lvl (test code = Sodium Lvl) 139 135-145 [place] 714214-06-13 03:45:00 Test Item Value Reference Range Interpretation Comments Chloride Lvl (test code = Chloride Lvl) 105 95-109 [place] 714214-06-13 03:45:00 Test Item Value Reference Range Interpretation Comments Potassium Lvl (test code = Potassium 2.8 3.5-5.1 Lvl) [facility] 03:45:00 Test Item Value Reference Range Interpretation Comments AST (test code = AST) 95 See_Comment [Auto mated message] The system which ge nerated this result transmit ayala reference range : <=37. The reference range was not used to interpr et this result as elizabeth l/abnormal. [place] 714214-06-13 03:45:00 Test Item Value Reference Range Interpretation Comments ALT (test code = ALT) 51 See_Comment [Auto mated message] The system which ge nerated this result transmit ayala reference range : <=65. The reference range was not used to interpr et this result as elizabeth l/abnormal. [place] 714214-06-13 03:45:00 Test Item Value Reference Range Interpretation Comments Albumin Lvl (test code = Albumin Lvl) 3.8 3.5-5.0 [facility]2014-[facility]-13 03:45:00 Test Item Value Reference Range Interpretation Comments Alk Phos (test code = Alk Phos) 69 39-136 [facility] HospitalAtgmnijUNMZXCCCVH0478-36-99 03:45:00 Test Item Value Reference Range Interpretation Comments MPV (test code = MPV) 10.4 7.4-10.4 [facility] HospitalJbgcxynRZEDEMUKER7167-56-96 03:45:00 Test Item Value Reference Range Interpretation Comments Platelet (test code = Platelet) 177 133-450 [facility] HospitalIifiestNITPHLOUTS9895-07-12 03:45:00 Test Item Value Reference Range Interpretation Comments Hgb (test code = Hgb) 14.1 14.0-18.0 [facility] HospitalXxrqcsjAPTKOIHKAT7683-54-96 03:45:00 Test Item Value Reference Range Interpretation Comments WBC (test code = WBC) 8.5 3.7-10.4 [facility] HospitalOwymwnuMDGETTWIHI5082-65-41 03:45:00 Test Item Value Reference Range Interpretation Comments RBC (test code = RBC) 4.43 4.70-6.10 [facility] HospitalTxifutaAZULWWXEHK1731-10-95 03:45:00 Test Item Value Reference Range Interpretation Comments Hct (test code = Hct) 41.5 42.0-54.0 [facility] HospitalSeblcmqITQRCHWBCA4119-82-18 03:45:00 Test Item Value Reference Range Interpretation Comments MCV (test code = MCV) 93.6 80.0-94.0 [facility] HospitalCnmtslfQBZGPBKEJR8790-79-56 03:45:00 Test Item Value Reference Range Interpretation Comments RDW (test code = RDW) 13.2 11.5-14.5 [facility] HospitalQtjzijlXOUGVTLZBS6108-65-42 03:45:00 Test Item Value Reference Range Interpretation Comments MCHC (test code = MCHC) 34.0 32.0-36.0 [facility] HospitalWuaovlsUXWDSLKKCS9021-73-11 03:45:00 Test Item Value Reference Range Interpretation Comments MCH (test code = MCH) 31.9 pg 27.0-31.0 [facility] HospitalRkicqdhJMQNXQRPIA6286-00-60 03:45:00 Test Item Value Reference Range Interpretation Comments RBC Morph (test code = Normal (09/17/13 10:45 RBC Morph) PM) [facility] HospitalJlximfnQXHPLYIVDE5053-48-48 03:45:00 Test Item Value Reference Range Interpretation Comments Large Plt (test code = Slight *ABN*(09/17/13 Large Plt) 10:45 PM) [facility] HospitalCbnjdkpUNGEGIGGBZ8713-04-38 03:45:00 Test Item Value Reference Range Interpretation Comments Eosinophils # (test code 0.3 See_Comment [A utomated message] The = Eosinophils #) system whic h generated this result tra nsmitted reference range : <=0.5. The reference r kyler was not used to int erpret this result as normal/abnormal . [facility] HospitalFyethuhRPVIQJWMKB7729-20-65 03:45:00 Test Item Value Reference Range Interpretation Comments Basophils # (test code 0.2 See_Comment [Aut omated message] The = Basophils #) system which generated this result tra nsmitted reference range : <=0.2. The reference r kyler was not used to int erpret this result as normal/abnormal . [facility] HospitalBakkbqbAUMWUAYXLS8387-03-74 03:45:00 Test Item Value Reference Range Interpretation Comments Eosinophils (test code = 3.9 See_Comment [A utomated message] The Eosinophils) system which ge nerated this result tra nsmitted reference range : <=4.0. The reference r kyler was not used to int erpret this result as normal/abnormal . [facility] HospitalKzjwjlaAXSLIKXZGE3478-65-25 03:45:00 Test Item Value Reference Range Interpretation Comments Monocytes (test code = Monocytes) 13.4 2.0-12.0 [facility] HospitalWcjnfamIMILFYIBBQ9351-23-79 03:45:00 Test Item Value Reference Range Interpretation Comments Basophils (test code = 2.2 See_Comment [Aut omated message] The Basophils) system which ge nerated this result tra nsmitted reference range : <=1.0. The reference r kyler was not used to int erpret this result as normal/abnormal . [facility] HospitalActhxjoKPFYEKBGLY0257-56-65 03:45:00 Test Item Value Reference Range Interpretation Comments Lymphocytes (test code = Lymphocytes) 28.3 20.0-40.0 [facility] HospitalFruxriqEYQFHLCMQP2864-92-16 03:45:00 Test Item Value Reference Range Interpretation Comments Segs (test code = Segs) 52.2 45.0-75.0 [facility] HospitalVsuhekkAMXMDWWLIB5131-85-46 03:45:00 Test Item Value Reference Range Interpretation Comments Monocytes # (test code 1.1 See_Comment [Aut omated message] The = Monocytes #) system which generated this result tra nsmitted reference range : <=0.8. The reference r kyler was not used to int erpret this result as normal/abnormal . [place] 913864-06-13 03:45:00 Test Item Value Reference Range Interpretation Comments Segs-Bands # (test code = Segs-Bands #) 4.4 1.5-8.1 [facility] HospitalYzmccllLPMFHHFKSO1548-32-30 03:45:00 Test Item Value Reference Range Interpretation Comments Lymphocytes # (test code = Lymphocytes 2.4 1.0-5.5 #) [facility] 03:45:00 Test Item Value Reference Range Interpretation Comments Lipase Lvl (test code = Lipase Lvl) 120 73-393 [facility]2014-06-13 03:45:00 Test Item Value Reference Range Interpretation Comments eGFR (test code = eGFR) 65 [facility]2014-06-13 03:45:00 Test Item Value Reference Range Interpretation Comments B/C Ratio (test code = B/C Ratio) 9 6-25 [facility]2014-06-13 03:45:00 Test Item Value Reference Range Interpretation Comments AGAP (test code = AGAP) 9.8 10.0-20.0 [facility]2014-06-13 03:45:00 Test Item Value Reference Range Interpretation Comments A/G Ratio (test code = A/G Ratio) 0.8 0.7-1.6 [facility]2014-06-13 03:45:00 Test Item Value Reference Range Interpretation Comments Globulin (test code = Globulin) 5.0 2.0-4.0 [facility]2014-06-13 03:45:00 Test Item Value Reference Range Interpretation Comments Calcium Lvl (test code = Calcium Lvl) 9.1 8.5-10.5 [facility]2014-06-13 03:45:00 Test Item Value Reference Range Interpretation Comments CO2 (test code = CO2) 27 24-32 [facility]2014-06-13 03:45:00 Test Item Value Reference Range Interpretation Comments Total Protein (test code = Total 8.8 6.4-8.4 Protein) [facility]2014-06-13 03:45:00 Test Item Value Reference Range Interpretation Comments Bili Total (test code = Bili Total) 2.1 0.2-1.3 [facility]2014-06-13 03:45:00 Test Item Value Reference Range Interpretation Comments Creatinine Lvl (test code = Creatinine 1.4 0.5-1.4 Lvl) [facility]2014-06-13 03:45:00 Test Item Value Reference Range Interpretation Comments Glucose Lvl (test code = Glucose Lvl) 101 70-99 [facility]2014-06-13 03:45:00 Test Item Value Reference Range Interpretation Comments BUN (test code = BUN) 12 7-22 [facility]2014-06-13 03:45:00 Test Item Value Reference Range Interpretation Comments Sodium Lvl (test code = Sodium Lvl) 139 135-145 [facility]2014-06-13 03:45:00 Test Item Value Reference Range Interpretation Comments Chloride Lvl (test code = Chloride Lvl) 105 95-109 [facility]2014-06-13 03:45:00 Test Item Value Reference Range Interpretation Comments Potassium Lvl (test code = Potassium 2.8 3.5-5.1 Lvl) [facility]2014-06-13 03:45:00 Test Item Value Reference Range Interpretation Comments AST (test code = AST) 95 <=37 [facility]2014-06-13 03:45:00 Test Item Value Reference Range Interpretation Comments ALT (test code = ALT) 51 <=65 [facility]2014-06-13 03:45:00 Test Item Value Reference Range Interpretation Comments Albumin Lvl (test code = Albumin Lvl) 3.8 3.5-5.0 [facility]2014-06-13 03:45:00 Test Item Value Reference Range Interpretation Comments Alk Phos (test code = Alk Phos) 69 39-136 [facility] HospitalUolxlimYUPONZEFFQ0393-01-00 03:45:00 Test Item Value Reference Range Interpretation Comments MPV (test code = MPV) 10.4 7.4-10.4 [facility] HospitalEjadjghLMFJQLARAR1125-19-11 03:45:00 Test Item Value Reference Range Interpretation Comments Platelet (test code = Platelet) 177 133-450 [facility] HospitalCtkidxoYCMPIKOSQJ4945-16-69 03:45:00 Test Item Value Reference Range Interpretation Comments Hgb (test code = Hgb) 14.1 14.0-18.0 [facility] HospitalNqiadkeMTISIUPMZQ7746-61-25 03:45:00 Test Item Value Reference Range Interpretation Comments WBC (test code = WBC) 8.5 3.7-10.4 [facility] HospitalXpbxyonJXALMIOEUI2846-48-60 03:45:00 Test Item Value Reference Range Interpretation Comments RBC (test code = RBC) 4.43 4.70-6.10 [facility] HospitalUaguyuuDMXLNXMLBL1424-67-44 03:45:00 Test Item Value Reference Range Interpretation Comments Hct (test code = Hct) 41.5 42.0-54.0 [facility] HospitalTsloqtiKZLFGIHORZ6632-82-07 03:45:00 Test Item Value Reference Range Interpretation Comments MCV (test code = MCV) 93.6 80.0-94.0 [facility] HospitalFiqfkswMSBGVCDKEF8355-47-49 03:45:00 Test Item Value Reference Range Interpretation Comments RDW (test code = RDW) 13.2 11.5-14.5 [facility] HospitalPivfcbcKVVXAKIARC0671-57-06 03:45:00 Test Item Value Reference Range Interpretation Comments MCHC (test code = MCHC) 34.0 32.0-36.0 [facility] HospitalKurrgscQCHBMDNEGC6327-60-64 03:45:00 Test Item Value Reference Range Interpretation Comments MCH (test code = MCH) 31.9 pg 27.0-31.0 [facility] HospitalZllpcujFXCNYWOYAM3591-96-61 03:45:00 Test Item Value Reference Range Interpretation Comments RBC Morph (test code = Normal (09/17/13 10:45 RBC Morph) PM) [facility] HospitalGyvrtvhYEOFPWQPJP5720-33-55 03:45:00 Test Item Value Reference Range Interpretation Comments Large Plt (test code = Slight *ABN*(09/17/13 Large Plt) 10:45 PM) [facility] HospitalNsphjwuSTIPMBONPV2675-56-10 03:45:00 Test Item Value Reference Range Interpretation Comments Eosinophils # (test code = Eosinophils 0.3 <=0.5 #) [facility] HospitalVswoupzQUKSCPPPFH6123-45-41 03:45:00 Test Item Value Reference Range Interpretation Comments Basophils # (test code = Basophils #) 0.[address] [facility] HospitalOkhzpdnDJESLZZRYI3663-83-14 03:45:00 Test Item Value Reference Range Interpretation Comments Eosinophils (test code = Eosinophils) 3.[address] [facility] HospitalPeblofkTAXCXFXWIJ0073-13-85 03:45:00 Test Item Value Reference Range Interpretation Comments Monocytes (test code = Monocytes) 13.4 2.0-12.0 [facility] HospitalMlvlytjRMOPPQBQEL6386-45-91 03:45:00 Test Item Value Reference Range Interpretation Comments Basophils (test code = Basophils) 2.[address] [facility] HospitalMzutjkkWYGAAZFHRS3352-35-77 03:45:00 Test Item Value Reference Range Interpretation Comments Lymphocytes (test code = Lymphocytes) 28.3 20.0-40.0 [facility] HospitalRqxezseMLCFOSGISE6115-24-28 03:45:00 Test Item Value Reference Range Interpretation Comments Segs (test code = Segs) 52.2 45.0-75.0 [facility] HospitalHluzkslTJHCJGOXRY3886-99-64 03:45:00 Test Item Value Reference Range Interpretation Comments Monocytes # (test code = Monocytes #) 1.[address] [facility] HospitalLlmiykeHCBAYMHCLY1827-03-30 03:45:00 Test Item Value Reference Range Interpretation Comments Segs-Bands # (test code = Segs-Bands #) 4.4 1.5-8.1 [facility] HospitalCwqvwoiFZBQAFWPGG0814-73-78 03:45:00 Test Item Value Reference Range Interpretation Comments Lymphocytes # (test code = Lymphocytes 2.4 1.0-5.5 #) [facility]
[2023-03-12 04:01] LABS: Absolute Lymphocytes (CBC) 1.4 K/uL (0.7-4.9); Hematocrit 34.2 % (39.6-49.0); Lymphocytes % 18.2 % (15.3-44.8); MPV 9.3 fL (7.6-11.3); Platelets 170 thou/uL (152-406); RBC Red Blood Cell Count 3.76 M/uL (4.33-5.43)
[2023-03-12 04:06] LABS: Protime INR 1.22
[2023-03-12] MEDS ORDERED: METHYLPREDNISOLONE 125 MG INJ ONE (04:23)
[2023-03-12] MEDS ORDERED: ONDANSETRON 4 MG/2 ML VIAL ONE (04:24)
[2023-03-12] MEDS ORDERED: ALBUTEROL 2.5 MG/3 ML NEB SOL ONE (04:24)
[2023-03-12] MEDS ORDERED: MORPHINE 4 MG/ML SYR ONE (04:24)
[2023-03-12] MEDS ORDERED: NA CHLORIDE 0.9% 1,000 ML ONE (04:25)
[2023-03-12 04:35] LABS: Bilirubin Direct 0.3 mg/dL (0-0.2); Bilirubin Total 1.3 mg/dL (0.2-1.0); C-Reactive Protein 5.32 mg/L (<3.00); Potassium 3.2 mEq/L (3.5-5.1); Protein, Total 7.1 g/dL (6.4-8.2); Thyroid Stimulating Hormone 1.55 uIU/mL (0.358-3.740); Troponin High Sensitivity 45.7 pg/mL (<58.9)
[2023-03-12] MEDS ORDERED: IPRATROPIUM BROM 0.5MG/2.5ML ONE (04:46)
[2023-03-12] MEDS ORDERED: POTASSIUM CL SA 10 MEQ TAB PO ONE (06:34)
[2023-03-12] MEDS ORDERED: MORPHINE 2 MG/ML SYR ONE (06:34)
[2023-03-12] MEDS ORDERED: NITROGLYCERIN 1 GM PKT TD ONE (06:34)
[2023-03-12] MEDS ORDERED: FUROSEMIDE 40 MG/4 ML VIAL ONE ×2 (06:35→06:46)
--- NOTE | 2023-03-12 07:00 | ER ---
Nurse's Notes [facility] Name: You Garcia Age: 67 yrs Sex: Male : 1955 Arrival Date: 03/12/2023 Time: 03:18 Bed 6 Private MD: Diagnosis: Acute pulmonary edema;Diastolic (congestive) heart failure;Acute diastolic heart failure with acute flash pulmonary edema Presentation: 03/12 03:26 Chief complaint: Patient states: LLQ ABD PAIN x3 HR, CONSTIPATION x3 DAYS, CHRONIC SOB bp WITH COPD. Coronavirus screen: At this time, the client does not indicate any symptoms associated with coronavirus-19. Ebola Screen: No symptoms or risks identified at this time. Initial Sepsis Screen: Does the patient meet any 2 criteria? No. Patient's initial sepsis screen is negative. Does the patient have a suspected source of infection? No. Patient's initial sepsis screen is negative. Risk Assessment: Do you want to hurt yourself or someone else? Patient reports no desire to harm self or others. Onset of symptoms was March 12, 2023 at 00:00. 03:26 Method Of Arrival: Wheelchair bp 03:26 Acuity: ROMINA 3 bp Historical: - Allergies: 03:27 No Known Allergies; bp - PMHx: 03:27 Chronic obstructive lung disease; Hypertensive disorder; bp - Immunization history:: Adult Immunizations up to date. - Social history:: Smoking status: unknown. - Family history:: not pertinent. Screenin:46 [facility] ED Fall Risk Assessment (Adult) History of falling in the last 3 months, nw1 including since admission No falls in past 3 months (0 pts) Confusion or Disorientation No (0 pts) Intoxicated or Sedated No (0 pts) Impaired Gait No (0 pts) Mobility Assist Device Used No (0 pt) Altered Elimination No (0 pt) Score/Fall Risk Level 0 - 2 = Low Risk Oriented to surroundings, Assessed \T\ reinforced patient's understanding of fall precautions, Provided non-skid footwear, Hourly rounding (assess needs \T\ fall precautionary measures) done. Abuse screen: Denies threats or abuse. Denies injuries from another. Abuse screen: Denies threats or abuse. Nutritional screening: No deficits noted. Tuberculosis screening: No symptoms or risk factors identified. Assessment: 03:46 Pain: Complains of pain in abdomen Pain does not radiate. denies abd pain with nw1 palpation. states he has not had a bm in 3 days. Cardiovascular: Rhythm is sinus tachycardia Chest pain is denied. Respiratory: Reports shortness of breath at rest on exertion labored breathing since 2 days Airway is patent Trachea midline Respiratory effort is even, labored, Respiratory pattern is regular, symmetrical, Breath sounds are diminished in right middle lobe, left lower lobe, right lower lobe, left posterior lower lobe, right posterior middle lobe and right posterior lower lobe Breath sounds with wheezes in right upper lobe, left upper lobe, left posterior upper lobe and right posterior upper lobe. GI: Abdomen is distended, Last BM was March 08, 2023. Derm: No signs and/or symptoms reported regarding the dermatologic system. Skin is intact, is healthy with good turgor, Skin is dry, Skin is dusky, pale. Musculoskeletal: No signs and/or symptoms reported regarding the musculoskeletal system. Vital Signs: 03:26 BP 153 / 108; Pulse 104; Resp 28; Temp 98; Pulse Ox 91% on R/A; Weight 90.72 kg; Height bp 5 ft. 11 in. ; 06:25 BP 150 / 107; Pulse 109; Resp 20; Pulse Ox 90% on R/A; rv1 03:26 Body Mass Index 27.89 (90.72 kg, 180.34 cm) bp Luanne Coma Score: 03:46 Eye Response: spontaneous(4). Motor Response: obeys commands(6). Verbal Response: nw1 oriented(5). Total: 15. ED Course: 03:20 Patient arrived in ED. ag3 03:23 Radu Valenzuela MD is Attending Physician. sp4 03:27 Triage completed. bp 03:28 Maria Eugenia Sharma, [place] is Primary Nurse. nw1 03:42 XRAY Chest (1 view) In Process Unspecified. EDMS 03:46 Lipase Sent. nw1 03:46 Basic Metabolic Panel Sent. nw1 03:46 LFT's Sent. nw1 03:46 Magnesium Sent. nw1 03:46 NT PRO-BNP Sent. nw1 03:46 PT-INR Sent. nw1 03:46 Troponin HS Sent. nw1 03:46 CBC with Diff Sent. nw1 03:46 No provider procedures requiring assistance completed. Inserted saline lock: 18 gauge nw1 in right forearm, using aseptic technique. Blood collected. Oxygen administration via nasal cannula \T\ 2L/min. 03:46 Patient has correct armband on for positive identification. Placed in gown. Bed in low nw1 position. Call light in reach. Side rails up X2. Provided Education on: POC. Client placed on continuous cardiac and pulse oximetry monitoring. NIBP monitoring applied. court monitor on. Pulse ox on. NIBP on. 05:05 CT Chest, Abdomen, Pelvis - W/Contrast In Process Unspecified. EDMS 08:15 pt accepted in transfer to [facility] rm [id number] Calixto, admin approval given bd by Lorri Traore. Administered Medications: 04:29 Drug: NS 0.9% IV 1000 ml IV at 125 ml/hr continuous Route: IV; Rate: 125 ml/hr; Site: nw1 right forearm; 04:29 Drug: Ondansetron IVP 4 mg IVP once; over 2 minutes Route: IVP; Site: right forearm; nw1 04:30 Drug: morphine IVP or IV 4 mg IVP once over 4 mins Route: IVP; Infused Over: 4 mins; nw1 Site: right forearm; 04:30 Drug: MethylPrednisoLONE IVP 125 mg IVP once Route: IVP; Site: right forearm; nw1 04:30 Drug: Albuterol Inhalation 2.5 mg Inhalation once Route: Inhalation; nw1 04:30 Drug: Ipratropium Inhalation Aerosol 0.5 mg Inhalation once Route: Inhalation; nw1 06:35 Drug: Furosemide IVP 80 mg IVP once; give over 2 minutes Route: IVP; Site: right la4 forearm; 06:35 Drug: morphine IVP or IV 2 mg IVP once over 4 mins Route: IVP; Infused Over: 4 mins; la4 Site: right forearm; 06:35 Drug: Nitroglycerin Transdermal Ointment 2 % 0.5 inches Transdermal once Route: la4 Transdermal; Site: anterior chest wall; 06:35 Drug: Potassium Chloride PO 40 mEq PO once Route: PO; la4 07:24 Drug: Aspirin PO Chewable Tablet 324 mg PO once; 81 mg tablets x 4 Route: PO; tm6 Medication: 03:46 VIS not applicable for this client. nw1 Outcome: 06:59 ER care complete, transfer ordered by sp4 09:34 Patient left the ED. ld1 Signatures: Dispatcher [employer] EDMS Kirstie Jesus Brian, RN RN Bonita Klein ag3 Cinthya John RN RN ld1 Karyna Henson rv1 Radu Valenzuela MD MD sp4 Toshia Fuentes RN RN tm6 Justus Pham RN RN la4 Maria Eugenia Sharma RN RN nw1
--- NOTE | 2023-03-12 07:00 | EDPHYS ---
Physician Documentation [facility] Name: You Garcia Age: 67 yrs Sex: Male : 1955 Arrival Date: 03/12/2023 Time: 03:18 Bed 6 Private MD: ED Physician Radu Valenzuela HPI: 03/12 03:23 This 67 yrs old Male presents to ER via Unassigned with complaints of sp4 Shortness Of Breath, Abdominal Pain. 03:48 This very pleasant 67-year-old black man presents with worsening abdominal pain and sp4 shortness of breath starting 2 days ago. Patient states he has left-sided abdominal pain associated with some shortness of breath without vomiting, without other symptoms, without chest pain, patient denied any fever or vomiting. Patient reported a history of appendectomy and cholecystectomy. Patient has history of chronic obstructive pulmonary disease, and hypertension. On presentation patient is tachycardic and tachypneic . . Historical: - Allergies: 03:27 No Known Allergies; bp - PMHx: 03:27 Chronic obstructive lung disease; Hypertensive disorder; bp - Immunization history:: Adult Immunizations up to date. - Social history:: Smoking status: unknown. - Family history:: not pertinent. ROS: 03:48 Constitutional: Negative for fever, chills, and weight loss, Abdomen/GI: Positive sp4 abdominal pain, positive for shortness of breath, positive left lower abdominal pain, negative vomiting negative constipation, negative black stools 03:48 All other systems are negative, Exam: 03:48 Constitutional: This is a well developed, well nourished patient who is awake, alert, sp4 patient is uncomfortable appearing male with tachycardia and tachypnea on presentation Head/Face: Normocephalic, atraumatic. Eyes: Pupils equal round and reactive to light, extra-ocular motions intact. Lids and lashes normal. Conjunctiva and sclera are not injected. Cornea within normal limits. Periorbital areas with no swelling, redness, or edema. Pale appearing eye ENT: Nares patent. No nasal discharge, no septal abnormalities noted. Tympanic membranes are normal and external auditory canals are clear. Oropharynx with no redness, swelling, or masses, exudates, or evidence of obstruction, uvula midline. Mucous membranes moist. Neck: Trachea midline, no thyromegaly or masses palpated, and no cervical lymphadenopathy. Supple, full range of motion without nuchal rigidity, or vertebral point tenderness. Chest/axilla: Normal chest wall appearance and motion. Nontender with no deformity. No lesions are appreciated. Cardiovascular: Regular rate and rhythm with a normal S1 and S2. No gallops, murmurs, or rubs. Normal PMI, no JVD. No pulse deficits. Respiratory: Lungs have equal breath sounds bilaterally, clear to auscultation and percussion. No rales, rhonchi or wheezes noted. No increased work of breathing, no retractions or nasal flaring. Abdomen/GI: Soft, with normal bowel sounds. No distension or tympany. No guarding or rebound. Positive for left upper and left lower abdominal tenderness Back: No spinal tenderness. No costovertebral tenderness. Male : Normal genitalia with no discharge or lesions. Skin: Warm, dry with normal turgor. Normal color with no rashes, no lesions, and no evidence of cellulitis. MS/ Extremity: Pulses equal, no cyanosis. Neurovascular intact. Full, normal range of motion. Neuro: Awake and alert, GCS 15, oriented to person, place, time, and situation. Cranial nerves II-XII grossly intact. Motor strength 5/5 in all extremities. Sensory grossly intact. Psych: Awake, alert, with orientation to person, place and time. Behavior, mood, and affect are within normal limits 03:48 ECG was reviewed by the Attending Physician. EKG time 0 341, there is sinus tachycardia sp4 at the rate of 110, biatrial enlargement, left ventricular hypertrophy. No ST elevation or depression Vital Signs: 03:26 BP 153 / 108; Pulse 104; Resp 28; Temp 98; Pulse Ox 91% on R/A; Weight 90.72 kg; Height bp 5 ft. 11 in. ; 06:25 BP 150 / 107; Pulse 109; Resp 20; Pulse Ox 90% on R/A; rv1 03:26 Body Mass Index 27.89 (90.72 kg, 180.34 cm) bp [place] Coma Score: 03:46 Eye Response: spontaneous(4). Motor Response: obeys commands(6). Verbal Response: nw1 oriented(5). Total: 15. MDM: 03:25 Patient medically screened. sp4 05:54 Differential diagnosis: Anxiety Reaction asthma, Bronchitis CHF exacerbation, Chronic sp4 Obstructive Pulmonary Disease Myocardial Infarction. Data reviewed: vital signs, old medical records, lab test result(s), EKG, radiologic studies, CT scan, plain films. ED course: Chest X ray - TECHNIQUE: AP chest COMPARISON: None available for comparison FINDINGS: CHEST: Mild cardiomegaly. Widespread interstitial changes throughout the lungs bilaterally which may represent interstitial pneumonia or interstitial pulmonary edema on a background of more chronic interstitial lung disease. Correlation with clinical presentation recommended. There is no focal consolidation or pleural effusion. IMPRESSION: Widespread interstitial changes throughout the lungs bilaterally which may represent interstitial pneumonia or interstitial pulmonary edema on a background of more chronic interstitial lung disease. Correlation with clinical presentation recommended. . ED course: CT - FINDINGS: Chest: Thyroid:No abnormalities of the visualized thyroid. Great Vessels:Great vessels have normal anatomic configuration. Thoracic Aorta:No abnormalities of the thoracic aorta identified. Pulmonary arteries:No central filling defects identified. Heart:Cardiomegaly. Lymph Nodes:No enlarged mediastinal lymph nodes identified. Esophagus:No abnormalities of the esophagus identified Other:No additional findings. Lungs:Bilateral interlobular septal thickening with patchy bilateral groundglass and airspace opacities. Pleura:Small pleural effusions. No pneumothorax. Trachea/Airways:No abnormalities of the visualized trachea or airways. Abdomen: Liver: The liver has normal size and density. No intrahepatic mass or biliary dilatation. Gallbladder: Cholecystectomy. Spleen, Pancreas, and Adrenal Glands: The spleen, pancreas, and adrenal glands are unremarkable. Kidneys: The kidneys have normal size and contour without evidence of solid mass or hydronephrosis. Vasculature: Aortoiliac atherosclerosis. IVC is unremarkable. The portal vein is patent. The proximal visceral and renal arteries are patent. Stomach: Small hiatal hernia. Other: No free intraperitoneal air. No free fluid or lymphadenopathy. Pelvis: Bladder: Urinary bladder is unremarkable. Bowel: No dilated loops of large or small bowel. Appendix: Normal appendix. Pelvis:Prostate is not enlarged. Bones: No destructive bone lesions identified. IMPRESSION: 1. Cardiomegaly with bilateral interlobular septal thickening with patchy bilateral groundglass and airspace opacities. These findings could be seen with pulmonary edema. Superimposed pneumonic process could also contribute to this appearance. 2. Small pleural effusions. 3. No acute inflammatory or obstructive process identified in the abdomen. 4. Small hiatal hernia. . 06:59 ED course: CT reveals signs of pulmonary edema. Patient warrants transfer for 4 cardiology assessment. There is no available beds here today . . 07:01 Transition of care: After a detail discussion of the patient's case, care is sp4 transferred to Narciso Kramer MD. 07:21 ED course: Patient was accepted by [facility] at 721 . sp4 03/12 03:23 Order name: Basic Metabolic Panel; Complete Time: 05:51 sp4 03/12 03:23 Order name: CBC with Diff; Complete Time: 04:08 sp4 03/12 03:23 Order name: LFT's; Complete Time: 05:51 sp4 03/12 03:23 Order name: Magnesium; Complete Time: 05:51 sp4 03/12 03:23 Order name: NT PRO-BNP; Complete Time: 05:51 sp4 03/12 03:23 Order name: PT-INR; Complete Time: 04:08 sp4 03/12 03:23 Order name: Troponin HS; Complete Time: 05:51 sp4 03/12 03:24 Order name: Lipase; Complete Time: 05:51 sp4 03/12 03:59 Order name: C-Reactive Protein; Complete Time: 05:51 EDMS 03/12 03:59 Order name: Thyroid Stimulating Hormone; Complete Time: 05:51 EDMS 03/12 06:23 Order name: COVID-19 SARS RT PCR; Complete Time: 07:18 rv1 03/12 03:23 Order name: XRAY Chest (1 view) 4 03/12 03:37 Order name: CT Chest, Abdomen, Pelvis - W/Contrast sp4 03/12 03:23 Order name: EKG; Complete Time: 03:24 sp4 03/12 03:23 Order name: Cardiac monitoring; Complete Time: 03:46 sp4 03/12 03:23 Order name: EKG - Nurse/Tech; Complete Time: 03:46 sp4 03/12 03:23 Order name: IV Saline Lock; Complete Time: 03:46 sp4 03/12 03:23 Order name: Labs collected and sent; Complete Time: 03:46 sp4 03/12 03:23 Order name: O2 Per Protocol; Complete Time: 03:46 sp4 03/12 03:23 Order name: O2 Sat Monitoring; Complete Time: 03:46 sp4 EC:48 Rate is 110 beats/min. Rhythm is regular, Sinus tachycardia. QRS [place] is Normal. DE sp4 interval is normal. QRS interval is normal. QT interval is normal. No Q waves. T waves are Normal. No ST changes noted. Clinical impression: No evidence of ischemia. Interpreted by me. Administered Medications: 04:29 Drug: NS 0.9% IV 1000 ml IV at 125 ml/hr continuous Route: IV; Rate: 125 ml/hr; Site: nw1 right forearm; 04:29 Drug: Ondansetron IVP 4 mg IVP once; over 2 minutes Route: IVP; Site: right forearm; nw1 04:30 Drug: morphine IVP or IV 4 mg IVP once over 4 mins Route: IVP; Infused Over: 4 mins; nw1 Site: right forearm; 04:30 Drug: MethylPrednisoLONE IVP 125 mg IVP once Route: IVP; Site: right forearm; nw1 04:30 Drug: Albuterol Inhalation 2.5 mg Inhalation once Route: Inhalation; nw1 04:30 Drug: Ipratropium Inhalation Aerosol 0.5 mg Inhalation once Route: Inhalation; nw1 06:35 Drug: Furosemide IVP 80 mg IVP once; give over 2 minutes Route: IVP; Site: right la4 forearm; 06:35 Drug: morphine IVP or IV 2 mg IVP once over 4 mins Route: IVP; Infused Over: 4 mins; la4 Site: right forearm; 06:35 Drug: Nitroglycerin Transdermal Ointment 2 % 0.5 inches Transdermal once Route: la4 Transdermal; Site: anterior chest wall; 06:35 Drug: Potassium Chloride PO 40 mEq PO once Route: PO; la4 07:24 Drug: Aspirin PO Chewable Tablet 324 mg PO once; 81 mg tablets x 4 Route: PO; tm6 Disposition Summary: 03/12/23 06:59 Transfer Ordered Notes: Transfer Location: [facility] sp4 Reason: Higher level of care sp4 Condition: Stable sp4 Problem: new sp4 Symptoms: have improved sp4 Accepting Physician: [facility], (03/12/23 09:34) ld1 Diagnosis - Acute pulmonary edema sp4 - Diastolic (congestive) heart failure sp4 - Acute diastolic heart failure with acute flash pulmonary edema sp4 Forms: - Medication Reconciliation Form sp4 - SBAR form sp4 Signatures: Dispatcher [employer] EDMS Sarmad Leach, RN RN Cinthya Biswas RN RN ld1 Radu Valenzuela MD MD sp4 Toshia Fuentes RN RN tm6 Jsutus Pham RN RN la4 Maria Eugenia Sharma RN RN nw1 Corrections: (The following items were deleted from the chart) 03:58 03:40 THYROID STIMULAT HORMONE+C.LAB.BRZ ordered. EDMS EDMS 03:58 03:40 C-REACTIVE PROTEIN+C.LAB.BRZ ordered. EDMS EDMS 09:34 06:59 [facility], sp4 ld1
[2023-03-12] MEDS ORDERED: ASPIRIN 81 MG CHEWABLE TABLET ONE ×2 (07:33→07:38)
[2023-03-12 10:01] VITALS: TEMP 98
[2023-03-12 10:03] VITALS: BP 150/107; O2SAT 90
--- NOTE | 2023-03-12 13:26 | EKG ---
Test Date: 2023-03-12 Test Time: 03:41:53 Financial Services Rep: LANCE MEASUREMENT RESULTS: Intervals: Rate: 110 IA: 162 QRSD: 96 QT: 352 QTc: 476 [place]: P: 75 IA: 162 QRS: 84 T: 58 INTERPRETIVE STATEMENTS: Sinus tachycardia Biatrial enlargement Left ventricular hypertrophy Nonspecific T wave abnormality Abnormal ECG Compared to ECG 09/23/2012 13:22:08 Atrial abnormality now present Left ventricular hypertrophy now present T-wave abnormality now present Sinus rhythm no longer present Electronically Signed On 03-12-23 13:26:12 HAND TUBE BENDER by Ren Ny
--- NOTE | 2023-03-12 13:39 | RAD REPORT ---
EXAM DESCRIPTION: RAD - Chest Single View - 03/12/2023 3:40 am CLINICAL HISTORY: CHEST PAIN TECHNIQUE: AP chest COMPARISON: None available for comparison FINDINGS: CHEST: Mild cardiomegaly. Widespread interstitial changes throughout the lungs bilaterally which may represent interstitial pne umonia or interstitial pulmonary edema on a background of more chronic interstitial lung disease. Cor relation with clinical presentation recommended. There is no focal consolidation or pleural effusion. IMPRESSION: Widespread interstitial changes throughout the lungs bilaterally which may represent int erstitial pneumonia or interstitial pulmonary edema on a background of more chronic interstitial lung disease. Correlation with clinical presentation recommended. Electronically signed by: Osman Beltran MD 03/12/2023 03:51 AM MOLDING SANDER Due to temporary technical issues with the PACS/Fluency reporting system, reports are being signed by the in house radiologists without review as a courtesy to insure prompt reporting. The interpreting radiologist is fully responsible for the content of the report.
--- NOTE | 2023-03-12 13:54 | RAD REPORT ---
EXAM DESCRIPTION: CT - Chest Abdomen Pelvis W Cont - 03/12/2023 7:19 am CLINICAL HISTORY: Chest pain and abd pain COMPARISON: None Available. TECHNIQUE: CT of the chest, abdomen and pelvis performed following IV administration of iodinated co ntrast. Mild motion artifact. This exam was performed according to our departmental dose-optimization program, which includes automated exposure control, adjustment of the mA and/or kV according to craig ent size and/or use of iterative reconstruction technique. FINDINGS: Chest: Thyroid: No abnormalities of the visualized thyroid. Great Vessels: Great vessels have normal anatomic configuration. Thoracic Aorta: No abnormalities of the thoracic aorta identified. Pulmonary arteries: No central filling defects identified. Heart: Cardiomegaly. Lymph Nodes: No enlarged mediastinal lymph nodes identified. Esophagus: No abnormalities of the esophagus identified Other: No additional findings. Lungs: Bilateral interlobular septal thickening with patchy bilateral groundglass and airspace opacit ies. Pleura: Small pleural effusions. No pneumothorax. Trachea/Airways: No abnormalities of the visualized trachea or airways. Abdomen: Liver: The liver has normal size and density. No intrahepatic mass or biliary dilatation. Gallbladder: Cholecystectomy. Spleen, Pancreas, and Adrenal Glands: The spleen, pancreas, and adrenal glands are unremarkable. Kidneys: The kidneys have normal size and contour without evidence of solid mass or hydronephrosis. Vasculature: Aortoiliac atherosclerosis. IVC is unremarkable. The portal vein is patent. The proxim al visceral and renal arteries are patent. Stomach: Small hiatal hernia. Other: No free intraperitoneal air. No free fluid or lymphadenopathy. Pelvis: Bladder: Urinary bladder is unremarkable. Bowel: No dilated loops of large or small bowel. Appendix: Normal appendix. Pelvis: Prostate is not enlarged. Bones: No destructive bone lesions identified. IMPRESSION: 1. Cardiomegaly with bilateral interlobular septal thickening with patchy bilateral gr oundglass and airspace opacities. These findings could be seen with pulmonary edema. Superimposed pne umonic process could also contribute to this appearance. 2. Small pleural effusions. 3. No acute inflammatory or obstructive process identified in the abdomen. 4. Small hiatal hernia. Electronically signed by: Jr Jackson DO 03/12/2023 05:22 AM CREATIVE WRITING TEACHER M Due to temporary technical issues with the PACS/Fluency reporting system, reports are being signed by the in house radiologists without review as a courtesy to insure prompt reporting. The interpreting radiologist is fully responsible for the content of the report.
== END 2023-03-12 09:34 | disposition short-term general hospital (02) ==
LOC: ER 03:18
DX: I50.31 Acute diastolic (congestive) heart failure (principal); R10.32 Left lower quadrant pain; I10 Essential (primary) hypertension; J44.9 Chronic obstructive pulmonary disease, unspecified; Z11.52 Encounter for screening for COVID-19
CPT/HCPCS: 93005; 85025; 80048; 36415; 83735; 85610; 80076; 84443; 84484; 83690; 83880; 87635; 86140; 71260; 74177; 71045; 96375; 96374; 99285; Q9967; J1940 ×2; J7613; J7644; J2270; J2930; J2405; J7030